=== PATIENT | female | born 1950 | race Caucasian/White ===

== ENCOUNTER → 2018-08-16 | Outpatient (CLI) | payer OTHER | END | disposition home or self-care (01) | LOC: RAD 10:29 | DX: M54.5 Low back pain (principal) ==

== ENCOUNTER 2018-11-10 11:04 | Outpatient (CLI) | payer OTHER | END 2018-11-10 11:15 | disposition home or self-care (01) | LOC: TOM 11:04 | DX: R51 Headache (principal) ==

== ENCOUNTER 2019-07-11 12:41 | Outpatient (CLI) | payer OTHER | END 2019-07-11 16:29 | disposition home or self-care (01) | LOC: SONOGRAMA 12:41 → MAMO-SONO 13:15 → SONOGRAMA 16:29 | DX: E07.89 Other specified disorders of thyroid (principal) ==

== ENCOUNTER 2020-01-30 09:19 | Outpatient (CLI) | payer OTHER | END 2020-01-30 09:28 | disposition home or self-care (01) | LOC: SONOGRAMA 09:19 → MAMO-SONO 09:45 | DX: E04.2 Nontoxic multinodular goiter (principal) ==

== ENCOUNTER 2020-08-05 07:39 | Outpatient (CLI) | payer OTHER | END 2020-08-05 07:45 | disposition home or self-care (01) | LOC: SONOGRAMA 07:39 → MAMO-SONO 07:45 → SONOGRAMA 07:45 | PROVIDERS: ATTEND General Practice | DX: R10.84 Generalized abdominal pain (principal) ==

== ENCOUNTER 2023-02-19 10:22 | Emergency (ER) | payer OTHER ==
[~2023-02-19] VITALS: Ht 157.5 cm; Wt 66.7 kg
== END 2023-02-19 15:28 | disposition home or self-care (01) ==
LOC: ER 10:22
DX: K29.70 Gastritis, unspecified, without bleeding (principal); E78.00 Pure hypercholesterolemia, unspecified; Z88.6 Allergy status to analgesic agent